=== PATIENT | female | born 1995 | race African-American/Black ===

== ENCOUNTER 2020-04-27 09:19 | Inpatient (IN) | payer OTHER ==
[~2020-04-27] VITALS: Ht 168.9 cm; Wt 86.2 kg
[~2020-04-27 09:19] MED LIST: ALBUTEROL; IBUP-2030
[2020-04-27] MEDS ORDERED: ACETAMINOPHEN 325MG TABLET PO PRN ×2 (09:45→16:45)
[2020-04-27 10:00] LABS: CLARITY URINE CLEAR (CLEAR); COLOR URINE YELLOW (YELLOW); KETONES URINE 2+ (NEGATIVE); LEUKOCYTE ESTERASE URINE 1+ (NEGATIVE); NITRITE URINE NEGATIVE (NEGATIVE); OCCULT BLOOD URINE NEGATIVE (NEGATIVE); PROTEIN URINE TRACE (NEGATIVE); SPECIFIC GRAVITY URINE 1.029 (1.005-1.030)
[2020-04-27 10:12] LABS: BASOPHILS % 1.3 % (0.0-2.0); EOSINOPHILS % 3.2 % (0.0-5.0); HEMATOCRIT. 39.3 % (36.0-48.0); HEMOGLOBIN. 13.2 g/dL (12.0-16.0); LYMPHOCYTES % 37.5 % (20.0-50.0); MEAN CORPUSCULAR HEMOGLOBIN 32.3 pg (28.0-32.0); MEAN CORPUSCULAR VOLUME 96.2 fL (81.0-99.0); MEAN PLATELET VOLUME 8.8 fl (7.4-10.4); MONOCYTES % 11.2 % (2.0-8.0); NEUTROPHILS % 46.8 % (40.0-76.0); PLATELET 257 x1000/uL (130-400); RED BLOOD CELL COUNT 4.08 mill/uL (4.2-5.4); RED CELL DISTRIBUTION WIDTH 14.6 % (11.6-14.6)
[2020-04-27 10:18] LABS: CHLORIDE 110 mEq/L (98-107)
[2020-04-27 10:42] LABS: B-HCG QUANTITATIVE 9429 mIU/mL (<3)
[2020-04-27] MEDS ORDERED: CEFTRIAXONE 1 G PREMIX 50 ML IV ONE (11:45)
[2020-04-27] MEDS ORDERED: FENTANYL CITRATE/PF 50MCG/ML 2ML VIAL ONE (13:03)
[2020-04-27] MEDS ORDERED: PROPOFOL 200MG/20ML VIAL IV ONE (13:03)
[2020-04-27] MEDS ORDERED: MIDAZOLAM HCL 2 MG/2 ML VIAL ONE (13:03)
[2020-04-27] MEDS ORDERED: ONDANSETRON HCL 4MG/2ML INJ ONE (13:31)
[2020-04-27] MEDS ORDERED: METOCLOPRAMIDE HCL 10MG/2ML VIAL ONE (13:31)
[2020-04-27] MEDS ORDERED: KETOROLAC 30MG/ML VIAL ONE (14:00)
[2020-04-27] MEDS ORDERED: DEXAMETHASONE 4MG/ML 1ML VIAL ONE (14:27)
[2020-04-27] MEDS ORDERED: GLYCOPYRROLATE 0.2 MG/ML 2ML VIAL ONE (14:28)
[2020-04-27] MEDS ORDERED: SKIN ADHESIVE 0.7 GM EA TOP ONE (14:28)
[2020-04-27] MEDS ORDERED: ONDANSETRON HCL 4MG/2ML INJ IV PRN (14:45)
[2020-04-27] MEDS ORDERED: RHO(D) IMMUNE GLOBULIN 300 MCG/SYR IM ONE (14:45)
[2020-04-27] MEDS ORDERED: MEPERIDINE HCL/PF 25MG/ML CPJ IV PRN (14:45)
[2020-04-27] MEDS: HYDROMORPHONE HCL/PF 2MG/ML CPJ IV PRN ×3 (14:55→15:35)
[2020-04-27 16:00] VITALS: BP 108/64
[2020-04-27 16:30] VITALS: BP 108/64
[2020-04-27] MEDS: KETOROLAC 30MG/ML VIAL IV PRN ×2 (17:13→23:16)
[2020-04-27 20:00] VITALS: BP 110/67
[2020-04-28] VITALS: BP 117/71
[2020-04-28] MEDS: IBUPROFEN 400MG TABLET PO PRN ×3 (03:59→16:32)
[2020-04-28 04:00] VITALS: BP 113/71
[2020-04-28] MEDS: KETOROLAC 30MG/ML VIAL IV PRN (05:17)
[2020-04-28 08:00] VITALS: BP 108/75
[2020-04-28 12:00] VITALS: BP 106/65
[2020-04-28 16:00] VITALS: BP 115/87
[2020-04-28 20:00] VITALS: BP 114/89
[2020-04-29] VITALS: BP 109/71
[2020-04-29 04:00] VITALS: BP 107/65
[2020-04-29] MEDS ORDERED: METRONIDAZOLE 500MG TABLET PO NR (08:45)
[2020-04-29 13:35] LABS: BASOPHILS % 0.5 % (0.0-2.0); EOSINOPHILS % 1.5 % (0.0-5.0); HEMATOCRIT. 33.5 % (36.0-48.0); HEMOGLOBIN. 11.4 g/dL (12.0-16.0); LYMPHOCYTES % 21.3 % (20.0-50.0); MEAN CORPUSCULAR HEMOGLOBIN 32.5 pg (28.0-32.0); MEAN CORPUSCULAR VOLUME 95.5 fL (81.0-99.0); MEAN PLATELET VOLUME 8.6 fl (7.4-10.4); MONOCYTES % 8.7 % (2.0-8.0); PLATELET 254 x1000/uL (130-400); RED BLOOD CELL COUNT 3.51 mill/uL (4.2-5.4); RED CELL DISTRIBUTION WIDTH 14.2 % (11.6-14.6)
[2020-04-29 16:02] VITALS: BP 120/70
== END 2020-04-29 17:18 | disposition home or self-care (01) | DRG 545 ==
LOC: ER 09:19 → OR 11:56 → 6EST 11:57 → EDBEDREQ 12:00 → ENRESERV 14:51
PROVIDERS: ADMIT Obstetrics & Gynecology; ATTEND Obstetrics & Gynecology
PROC: 0UC50ZZ Extirpation of Matter from Right Fallopian Tube, Open Approach (ICD-10-PCS; principal; 2020-04-27)
PROC: 0WJJ4ZZ Inspection of Pelvic Cavity, Percutaneous Endoscopic Approach (ICD-10-PCS; 2020-04-27)
DX: O00.101 Right tubal pregnancy without intrauterine pregnancy (principal); A59.9 Trichomoniasis, unspecified; K66.1 Hemoperitoneum; N83.201 Unspecified ovarian cyst, right side; O98.311 Other infections with a predominantly sexual mode of transmission complicating pregnancy, first trimester; O99.511 Diseases of the respiratory system complicating pregnancy, first trimester; O34.81 Maternal care for other abnormalities of pelvic organs, first trimester; Z82.49 Family history of ischemic heart disease and other diseases of the circulatory system; Z3A.01 Less than 8 weeks gestation of pregnancy
CPT/HCPCS: 36415; 76801; 80053; 81003; 84702; 85025; 86850; 86900; 88305; 93005; 99285; J0696; J1100; J1170; J1885; J2175; J2250; J2405; J2704; J2765; J3010; J3490; J7030

== ENCOUNTER 2022-04-12 16:02 | Emergency (ER) | payer MEDICAID, OTHER ==
[~2022-04-12] VITALS: Ht 167.6 cm; Wt 75.0 kg
[2022-04-12 16:12] VITALS: BP 122/83
[2022-04-12] MEDS ORDERED: DIPHENHYDRAMINE 50MG CAPSULE PO ONE (18:00)
[2022-04-12] MEDS ORDERED: PREDNISONE 20MG TABLET PO ONE (18:00)
[2022-04-12] MEDS ORDERED: FAMOTIDINE 20MG TABLET PO ONE (18:00)
[2022-04-12] MEDS ORDERED: DIPH25CA83 MT (19:09)
[2022-04-12] MEDS ORDERED: ALBU6.7H15 INH (19:09)
[2022-04-12] MEDS ORDERED: FAMO-135 MT (19:09)
[2022-04-12] MEDS ORDERED: P50 MT (19:09)
== END 2022-04-12 19:17 | disposition home or self-care (01) ==
LOC: ER 16:02
DX: R21 Rash and other nonspecific skin eruption (principal); Z76.0 Encounter for issue of repeat prescription; J45.909 Unspecified asthma, uncomplicated; F12.10 Cannabis abuse, uncomplicated
CPT/HCPCS: 99284; J7512; Q0163

== ENCOUNTER 2025-06-24 12:04 | Emergency (ER) | payer OTHER ==
[~2025-06-24] VITALS: Ht 172.7 cm; Wt 68.0 kg
[~2025-06-24 12:04] MED LIST changes: +ALBU6.7H15 INH; +DIPH25CA83 MT; +FAMO-135 MT; +P50 MT
[2025-06-24 12:11] VITALS: BP 172/143; PULSE 96; RESP 18; TEMP 37; O2SAT 100; O2SAT 97
[2025-06-24] MEDS ORDERED: AZIT250T12 MT (15:25)
[2025-06-24] MEDS ORDERED: ALBU18HF2 IH (15:35)
[2025-06-24] MEDS: ONDANSETRON 4MG ODT PO ONE (15:36)
[2025-06-24 16:33] LABS: INFLUENZA TYPE A Presumptive Negative (Pres. Neg.)
[2025-06-24 16:34] LABS: INFLUENZA TYPE B Presumptive Negative (Pres. Neg.)
== END 2025-06-24 15:38 | disposition home or self-care (01) ==
LOC: ER 12:04
DX: J11.1 Influenza due to unidentified influenza virus with other respiratory manifestations (principal); I10 Essential (primary) hypertension; J45.901 Unspecified asthma with (acute) exacerbation; Z98.890 Other specified postprocedural states; Z20.822 Contact with and (suspected) exposure to COVID-19
CPT/HCPCS: 99283; 87426; 81025; 87804 ×2; Q0162